=== PATIENT | female | born 1980 | race African-American/Black ===

== ENCOUNTER 2018-10-24 10:43 | Emergency (ER) | payer OTHER ==
[~2018-10-24] VITALS: Ht 149.9 cm; Wt 63.5 kg
[2018-10-24 10:57] VITALS: BP 135/88
[2018-10-24] MEDS ORDERED: KETOROLAC 60 MG/2 ML VIAL. IM ONE (11:00)
[2018-10-24] MEDS ORDERED: GABA600T7 PO (11:04)
--- NOTE | 2018-10-24 11:04 | PHYS DOC ---
Adult General Chief Complaint Chief Complaint: PAIN CONTROL HPI HPI Patient is a 38 year old female who presents with complaining of back pain and neck pain and needs pain medication. Patient states she had history of fibromyalgia and taking gabapentin and ran out of her medication for the last 1 week and was not able to see her physician on to the next 3 days. Patient complaining of increasing her chronic pain in her neck and back and asking for refill of gabapentin. Patient states she had hydrocodone at home and took some of them but ran out of hydrocodone. Review of Systems Review of Systems Constitutional: Denies fever or chills [] Eyes: Denies change in visual acuity, redness, or eye pain [] HENT: Denies nasal congestion or sore throat [] Respiratory: Denies cough or shortness of breath [] Cardiovascular: No additional information not addressed in HPI [] GI: Denies abdominal pain, nausea, vomiting, bloody stools or diarrhea [] : Denies dysuria or hematuria [] Musculoskeletal: Reports back pain Integument: Denies rash or skin lesions [] Neurologic: Denies headache, focal weakness or sensory changes [] Endocrine: Denies polyuria or polydipsia [] All other systems were reviewed and found to be within normal limits, except as documented in this note. Current Medications Current Medications Current Medications Medications (Trade) Dose Ordered Sig/Dillon Start Time Stop Time Status Last Admin Dose Admin Ketorolac Tromethamine (Toradol Im) 60 mg 1X ONCE 10/24/18 11:00 10/24/18 11:05 DC 10/24/18 11:16 60 MG Allergies Allergies Allergies Coded Allergies Type Severity Reaction Last Updated Verified No Known Drug Allergies 10/24/18 No Physical Exam Physical Exam Constitutional: Well developed, well nourished, mild distress, non-toxic appearance. [] HENT: Normocephalic, atraumatic. Eyes: PERRLA, EOMI, conjunctiva normal, no discharge. [] Neck: Normal range of motion, no tenderness, supple, no stridor. [] Cardiovascular:Heart rate regular rhythm, no murmur [] Lungs & Thorax: Bilateral breath sounds clear to auscultation [] Back: No tenderness, no CVA tenderness. [] Extremities: No tenderness, no cyanosis, no clubbing, ROM intact, no edema. [] Neurologic: Alert and oriented X 3, no focal deficits noted. [] Psychologic: Affect normal, judgement normal, mood normal. [] Current Patient Data Vital Signs Vital Signs Date Time Temp Pulse Resp B/P (MAP) Pulse Ox O2 Delivery O2 Flow Rate FiO2 10/24/18 10:57 98.7 92 16 135/88 (104) 96 Room Air 98.7 EKG EKG [] Radiology/Procedures Radiology/Procedures [] Course & Med Decision Making Course & Med Decision Making discharge: I've spoken with the patient and/or caregivers. I've explained the patient's condition, diagnosis and treatment plan based on information available to me at this time. I've answered the patient's and/or caregivers questions and addressed any concerns. The patient and/or caregivers have a good understanding the patient's diagnosis, condition and treatment plan as can be expected at this point. Vital signs have been stabilized. The patient's condition is stable for discharge from the emergency department. The patient will pursue further outpatient evaluation with her primary care provider or other designated consulting physician as outlined in the discharge instructions. Patient and/or caregivers are agreeable to this plan of care and follow-up instructions have been explained in detail. The patient and/or caregivers have received these instructions in written format and expressed understanding of these discharge instructions. The patient and her caregivers are aware that if any significant change in condition or worsening of symptoms should prompt him to immediately return to this of the closest emergency department. If an emergent department is not readily available I would encou rage him to call 911. Dragon Disclaimer Dragon Disclaimer This electronic medical record was generated, in whole or in part, using a voice recognition dictation system. Departure Departure Impression: Primary Impression: Exacerbation of chronic back pain Additional Impression: Medication refill Disposition: HOME, SELF-CARE Condition: STABLE Referrals: UNKNOWN PCP NAME (PCP) Patient Instructions: Chronic Pain Management, Fibromyalgia, Medication Refill, Emergency Department Additional Instructions: Follow-up with your primary care physician in 3-5 days Return to ER if not getting better Scripts Gabapentin (GABAPENTIN) 600 Mg Tablet 600 MG PO TID for NEUROGENIC PAIN, #21 TAB Prov: FORD MADSEN MD 10/24/18 Problem Qualifiers FORD MADSEN MD Oct 24, 2018 11:04
== END 2018-10-24 11:18 | disposition home or self-care (01) ==
LOC: ER 10:43
DX: G89.29 Other chronic pain (principal); M54.9 Dorsalgia, unspecified; Z76.0 Encounter for issue of repeat prescription; M54.2 Cervicalgia
CPT/HCPCS: 96372; 99283; J1885

== ENCOUNTER 2018-10-30 18:18 | Emergency (ER) | payer OTHER ==
[~2018-10-30] VITALS: Ht 149.9 cm; Wt 63.5 kg
[~2018-10-30 18:18] MED LIST: GABA600T7 PO
[2018-10-30 18:29] VITALS: BP 134/76
[2018-10-30] MEDS ORDERED: ORPHENADRINE CITRATE 60 MG/2 ML VIAL. IM ONE (19:15)
[2018-10-30] MEDS ORDERED: DEXAMETHASONE SOD PHOS 20 MG/5 ML VIAL. IM ONE (19:15)
[2018-10-30] MEDS ORDERED: PRED50TA PO (20:12)
--- NOTE | 2018-10-30 20:13 | PHYS DOC ---
Past Medical History Past Medical History: Fibromyalgia Past Surgical History: No Surgical History Alcohol Use: None Drug Use: Marijuana Adult General Chief Complaint Chief Complaint: MUSCLE SPASM/[facility] HPI Patient is a 38 year old female, accompanied by her family, who presents to the emergency department with complaints of spasms in her right shoulder/trapezius area since 3:00 this afternoon she also complains of bilateral low back pain that she describes as tightness. Patient reports a history of fibromyalgia, she states she takes gabapentin, Cymbalta, and Robaxin for control of her fibromyalgia. She currently rates her pain 8 out of 10 on pain scale, she denies any numbness, tingling, or weakness of her extremities. Patient denies any saddle anesthesia or loss of bowel or bladder control. She denies any alleviating factors, she states that the pain increases with movement. Patient denies any recent heavy lifting or known injury. Review of Systems Review of Systems Constitutional: Denies fever or chills [] Eyes: Denies change in visual acuity, redness, or eye pain [] HENT: Denies nasal congestion or sore throat [] Respiratory: Denies cough or shortness of breath [] Cardiovascular: No additional information not addressed in HPI [] GI: Denies abdominal pain, nausea, vomiting, or diarrhea [] : Denies dysuria, increased urine frequency, or hematuria [] Musculoskeletal: See history of present illness Integument: Denies rash or skin lesions [] Neurologic: Denies headache, focal weakness or sensory changes [] Complete systems were reviewed and found to be within normal limits, except as documented in this note. Current Medications Current Medications Current Medications Medications (Trade) Dose Ordered Sig/[facility] Start Time Stop Time Status Last Admin Dose Admin Dexamethasone Sodium Phosphate (Decadron) 10 mg 1X ONCE 10/30/18 19:15 10/30/18 19:16 DC 10/30/18 19:24 10 MG Orphenadrine Citrate (Norflex) 60 mg 1X ONCE 10/30/18 19:15 10/30/18 19:16 DC 10/30/18 19:24 60 MG Allergies Allergies Allergies Coded Allergies Type Severity Reaction Last Updated Verified No Known Drug Allergies 10/24/18 No Physical Exam Physical Exam Constitutional: Well developed, well nourished, no acute distress, non-toxic appearance. [] HENT: Normocephalic, atraumatic, bilateral external ears normal, oropharynx moist, no oral exudates, nose normal. [] Eyes: PERRLA, EOMI, conjunctiva normal, no discharge. [] Neck: Normal range of motion, no bony tenderness, supple, no stridor. [] Cardiovascular:Heart rate regular rhythm, no murmur [] Lungs & Thorax: Bilateral breath sounds clear to auscultation [] Skin: Warm, dry, no erythema, no rash. [] Back: Left trapezius tenderness to palpation, bilateral paraspinal lumbar tenderness to palpation, no bony tenderness of the cervical, thoracic, or lumbar spine Extremities: No cyanosis, no clubbing, ROM intact, no edema. [] Neurologic: Alert and oriented X 3, normal motor function, normal sensory function, no focal deficits noted. [] Psychologic: Affect normal, judgement normal, mood normal. [] Current Patient Data Vital Signs Vital Signs Date Time Temp Pulse Resp B/P (MAP) Pulse Ox O2 Delivery O2 Flow Rate FiO2 10/30/18 18:29 97.9 78 16 134/76 (95) 97 Room Air 97.9 EKG EKG [] Radiology/Procedures Radiology/Procedures [] Course & Med Decision Making Course & Med Decision Making Pertinent Labs and Imaging studies reviewed. (See chart for details) dx: Trapezius muscle spasm, bilateral paraspinal lumbar back pain Patient was given 60 mg of IM Norflex and 10 mg of IM Decadron, she reported feeling better after these medications. A prescription was written for prednisone 50 mg tablets take 1 by mouth daily starting tomorrow. For 5 days. Patient was instructed to continue taking her methocarbamol and other daily medications as prescribed. Follow up with her primary care doctor. Return to the ER if symptoms worsen. Patient verbalized an understanding of home care, medications, follow-up, and return to ED instructions and was in agreement with the plan of care. [] Dragon Disclaimer Dragon Disclaimer This electronic medical record was generated, in whole or in part, using a voice recognition dictation system. Departure Departure Impression: Primary Impression: Trapezius muscle spasm Additional Impression: Spasm of lumbar paraspinous muscle Disposition: HOME, SELF-CARE Condition: STABLE Referrals: UNKNOWN PCP NAME (PCP) Patient Instructions: Back Pain, Adult, [id number] Additional Instructions: Fill the prescription and use as directed. Take you methocarbamol as reported. Apply ice or heat to sore area as needed for comfort. Follow up with your Primary care doctor if symptoms persist, return to the ER if symptoms worsen. Scripts Prednisone (PREDNISONE) 50 Mg Tablet 1 TAB PO DAILY, #5 TAB begin taking on 10/31/18 Prov: PENNY WHITTINGTON APRN 10/30/18 Problem Qualifiers PENNY WHITTINGTON APRN Oct 30, 2018 20:13
== END 2018-10-30 20:25 | disposition home or self-care (01) ==
LOC: ER 18:18
DX: M62.830 Muscle spasm of back (principal); M62.838 Other muscle spasm
CPT/HCPCS: 96372; 99284; J1100; J2360

== ENCOUNTER 2018-11-24 02:13 | Emergency (ER) | payer OTHER ==
[~2018-11-24] VITALS: Ht 149.9 cm; Wt 63.5 kg
[~2018-11-24 02:13] MED LIST changes: +PRED50TA PO
[2018-11-24 02:15] VITALS: BP 186/85
[2018-11-24 02:59] LABS: BILIRUBIN,URINE SMALL (NEG); CLARITY,URINE CLOUDY; COLOR,URINE AMBER; NITRITE,URINE NEGATIVE (NEG); PH,URINE 5.5; PROTEIN,URINE 100 mg/dL (NEG-TRACE); UROBILINOGEN,URINE 0.2 mg/dL (0.2 mg/dL)
[2018-11-24] MEDS ORDERED: KETOROLAC 30 MG/ML VIAL. IM ONE (03:00)
[2018-11-24] MEDS ORDERED: ONDANSETRON ODT 4 MG TAB.RAPDIS. PO ONE (03:00)
[2018-11-24 03:04] LABS: BACTERIA,URINE MANY /HPF (0-FEW); SQUAMOUS EPITHELIAL CELL,UR MANY /LPF; WBC,URINE 20-40 /HPF (0-4)
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
[2018-11-24] MEDS ORDERED: ORPH100T PO (03:38)
[2018-11-24] MEDS ORDERED: ONDA4TAB12 PO (03:38)
[2018-11-24] MEDS ORDERED: NAPR-695 PO (03:38)
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
== END 2018-11-24 06:10 | disposition home or self-care (01) ==
LOC: EEVIPCON 02:13 → ER 02:13
DX: S16.1XXA Strain of muscle, fascia and tendon at neck level, initial encounter (principal); S00.03XA Contusion of scalp, initial encounter; S40.022A Contusion of left upper arm, initial encounter; R11.0 Nausea; R42 Dizziness and giddiness; F17.210 Nicotine dependence, cigarettes, uncomplicated; Y08.89XA Assault by other specified means, initial encounter; Y93.89 Activity, other specified; Y92.89 Other specified places as the place of occurrence of the external cause; Y99.8 Other external cause status
CPT/HCPCS: 70450; 72125; 81001; 81025; 87086; 96372; 99285; J1885; Q0162

== ENCOUNTER 2019-09-23 02:26 | Emergency (ER) | payer OTHER ==
[~2019-09-23] VITALS: Ht 149.9 cm; Wt 75.0 kg
[~2019-09-23 02:26] MED LIST changes: +NAPR-695 PO; +ONDA4TAB12 PO; +ORPH100T PO
[2019-09-23 03:25] LABS: BILIRUBIN,URINE NEGATIVE (NEG); CLARITY,URINE CLEAR; COLOR,URINE YELLOW; NITRITE,URINE NEGATIVE (NEG); PROTEIN,URINE NEGATIVE (NEG-TRACE)
[2019-09-23 03:25] LABS: BASO # 0.1 x10^3/uL (0.0-0.2); BASO % 1 % (0-3); EOS # 0.2 x10^3/uL (0.0-0.7); EOS % 1 % (0-3); HEMATOCRIT 41.8 % (36.0-47.0); HEMOGLOBIN 14.4 g/dL (12.0-15.5); LYMPH # 2.5 x10^3/uL (1.0-4.8); LYMPH % 18 % (24-48); MEAN CORPUSCULAR HEMOGLOBIN 33 pg (25-35); MEAN CORPUSCULAR HGB CONC 34 g/dL (31-37); MEAN CORPUSCULAR VOLUME 94 fL (79-100); MONO # 0.4 x10^3/uL (0.0-1.1); MONO % 3 % (0-9); NEUT # 10.2 x10^3/uL (1.8-7.7); NEUT % 77 % (31-73); PLATELET COUNT 257 x10^3/uL (140-400); RED BLOOD COUNT 4.43 x10^6/uL (3.50-5.40); RED CELL DISTRIBUTION WIDTH 13.2 % (11.5-14.5); WHITE BLOOD COUNT 13.3 x10^3/uL (4.0-11.0)
[2019-09-23 03:32] LABS: CALCIUM 8.9 mg/dL (8.5-10.1); CREATININE 0.8 mg/dL (0.6-1.0); GFR 80.3; POTASSIUM 4.1 mmol/L (3.5-5.1)
[2019-09-23 03:33] LABS: PREG TEST PT QUAL NEGATIVE (NEG)
[2019-09-23] MEDS: DICYCLOMINE 20 MG/2 ML VIAL. IM ONE (03:35)
[2019-09-23] MEDS: IV NORMAL SALINE 1000ML BAG 1,000 ML IV SCH (03:35)
[2019-09-23] MEDS: ONDANSETRON PF 4 MG/2 ML VIAL. IVP ONE (03:35)
[2019-09-23 03:37] LABS: ALBUMIN/GLOBULIN RATIO 1.1 (1.0-1.7); TOTAL BILIRUBIN 0.2 mg/dL (0.2-1.0); TOTAL PROTEIN 7.7 g/dL (6.4-8.2)
--- NOTE | 2019-09-23 03:37 | PHYS DOC ---
Past Medical History Past Medical History: Fibromyalgia, Hypertension Past Surgical History: No Surgical History Smoking Status: Current Every Day Smoker Alcohol Use: None Drug Use: Marijuana General Adult EDM: Chief Complaint: ABDOMINAL PAIN HPI: HPI: Patient is a 39 year old female who presents with 3 to 4-hour history of left- sided abdominal pain that is 8 out of 10 in intensity nonradiating described as burning and sharp in the left side of the abdomen. Patient has nausea and constipation. No fevers, chills, diarrhea. Patient also has had some dysuria. Review of Systems: Review of Systems: Constitutional: Denies fever or chills. [] Eyes: Denies change in visual acuity. [] HENT: Denies nasal congestion or sore throat. [] Respiratory: Denies cough or shortness of breath. [] Cardiovascular: Denies chest pain or edema. [] GI: Complains of abdominal pain and nausea but no diarrhea also complains of constipation : Complains of dysuria Musculoskeletal: Denies back pain or joint pain. [] Integument: Denies rash. [] Neurologic: Denies headache, focal weakness or sensory changes. [] Endocrine: Denies polyuria or polydipsia. [] Lymphatic: Denies swollen glands. [] Psychiatric: Denies depression or anxiety. [] Heart Score: Risk Factors: Risk Factors: DM, Current or recent (<one month) smoker, HTN, HLP, family history of CAD, obesity. Risk Scores: Score 0 - 3: 2.5% MACE over next 6 weeks - Discharge Home Score 4 - 6: 20.3% MACE over next 6 weeks - Admit for Clinical Observation Score 7 - 10: 72.7% MACE over next 6 weeks - Early Invasive Strategies Current Medications: Current Medications Medications (Trade) Dose Ordered Sig/Dillon Start Time Stop Time Status Last Admin Dose Admin Dicyclomine HCl (Bentyl) 20 mg 1X ONCE 09/23/19 03:30 09/23/19 03:31 DC Ondansetron HCl (Zofran) 4 mg 1X ONCE 09/23/19 03:30 09/23/19 03:31 DC Sodium Chloride 1,000 ml @ 1,000 mls/hr Q1H 09/23/19 03:30 09/23/19 04:29 Allergies: Allergies: Allergies Coded Allergies Type Severity Reaction Last Updated Verified No Known Drug Allergies 10/24/18 No Physical Exam: PE: Constitutional: Well developed, well nourished, no acute distress, non-toxic appearance. [] HENT: Normocephalic, atraumatic, bilateral external ears normal, oropharynx moist, no oral exudates, nose normal. [] Eyes: PERRLA, EOMI, conjunctiva normal, no discharge. [] Neck: Normal range of motion, no tenderness, supple, no stridor. [] Cardiovascular:Heart rate regular rhythm, peripheral pulses intact cap refill brisk Lungs & Thorax: Bilateral breath sounds clear, no respiratory distress Abdomen: , soft, tender to palpate a left-sided abdomen without guarding or rebound no masses, no pulsatile masses. [] Skin: Warm, dry, no erythema, no rash. [] Back: No tenderness, no CVA tenderness. [] Extremities: No tenderness, no cyanosis, no clubbing, ROM intact, no edema. [] Neurologic: Alert and oriented X 3, normal motor function, normal sensory function, no focal deficits noted. [] Psychologic: Affect normal, judgement normal, mood normal. [] Current Patient Data: Labs: Laboratory Tests Test 09/23/19 02:30 09/23/19 02:36 09/23/19 03:13 Urine Collection Type Unknown Urine Color Yellow Urine Clarity Clear Urine pH 7.0 Urine Specific [place] 1.010 Urine Protein Negative mg/dL Urine Glucose (UA) Negative mg/dL Urine Ketones (Stick) Negative mg/dL Urine Blood Small Urine Nitrite Negative Urine Bilirubin Negative Urine Urobilinogen Dipstick 1.0 mg/dL Urine Leukocyte Esterase Negative Urine RBC Occ /HPF Urine WBC Occ /HPF Urine Squamous Epithelial Cells Mod /LPF Urine Bacteria Few /HPF Bedside Urine HCG, Qualitative Hcg negative White Blood Count 13.3 x10^3/uL Red Blood Count 4.43 x10^6/uL Hemoglobin 14.4 g/dL Hematocrit 41.8 % Mean Corpuscular Volume 94 fL Mean Corpuscular Hemoglobin 33 pg Mean Corpuscular Hemoglobin Concent 34 g/dL Red Cell Distribution Width 13.2 % Platelet Count 257 x10^3/uL Neutrophils (%) (Auto) 77 % Lymphocytes (%) (Auto) 18 % Monocytes (%) (Auto) 3 % Eosinophils (%) (Auto) 1 % Basophils (%) (Auto) 1 % Neutrophils # (Auto) 10.2 x10^3/uL Lymphocytes # (Auto) 2.5 x10^3/uL Monocytes # (Auto) 0.4 x10^3/uL Eosinophils # (Auto) 0.2 x10^3/uL Basophils # (Auto) 0.1 x10^3/uL Sodium Level 138 mmol/L Potassium Level 4.1 mmol/L Chloride Level 102 mmol/L Carbon Dioxide Level 29 mmol/L Anion Gap 7 Blood Urea Nitrogen 7 mg/dL Creatinine 0.8 mg/dL Estimated GFR (Cockcroft-Gault) 80.3 BUN/Creatinine Ratio 9 Glucose Level 107 mg/dL Calcium Level 8.9 mg/dL Total Bilirubin 0.2 mg/dL Aspartate Amino Transf (AST/SGOT) 17 U/L Alanine Aminotransferase (ALT/SGPT) 22 U/L Alkaline Phosphatase 66 U/L Total Protein 7.7 g/dL Albumin 4.0 g/dL Albumin/Globulin Ratio 1.1 Lipase 97 U/L Serum Test, Qualitative Negative Current Medications Medications (Trade) Dose Ordered Sig/Dillon Route PRN Reason Start Time Stop Time Status Last Admin Dose Admin Sodium Chloride 1,000 ml @ 1,000 mls/hr Q1H IV 09/23/19 03:30 09/23/19 04:29 DC 09/23/19 03:35 Ondansetron HCl (Zofran) 4 mg 1X ONCE IVP 09/23/19 03:30 09/23/19 03:31 DC 09/23/19 03:35 Dicyclomine HCl (Bentyl) 20 mg 1X ONCE IM 09/23/19 03:30 09/23/19 03:31 DC 09/23/19 03:35 Iohexol (Omnipaque 300 Mg/ml) 75 ml 1X ONCE IV 09/23/19 04:00 09/23/19 04:01 DC 09/23/19 03:47 Info (CONTRAST GIVEN -- Rx MONITORING) 1 each PRN DAILY PRN MC SEE COMMENTS 09/23/19 03:45 09/25/19 03:44 Morphine Sulfate (Morphine Sulfate) 4 mg 1X ONCE IV 09/23/19 05:00 09/23/19 05:01 Laboratory Tests Test 09/23/19 02:36 09/23/19 03:13 POC Urine HCG, Qualitative Hcg negative (Negative) White Blood Count 13.3 x10^3/uL (4.0-11.0) H Red Blood Count 4.43 x10^6/uL (3.50-5.40) Hemoglobin 14.4 g/dL (12.0-15.5) Hematocrit 41.8 % (36.0-47.0) Mean Corpuscular Volume 94 fL (79-100) Mean Corpuscular Hemoglobin 33 pg (25-35) Mean Corpuscular Hemoglobin Concent 34 g/dL (31-37) Red Cell Distribution Width 13.2 % (11.5-14.5) Platelet Count 257 x10^3/uL (140-400) Neutrophils (%) (Auto) 77 % (31-73) H Lymphocytes (%) (Auto) 18 % (24-48) L Monocytes (%) (Auto) 3 % (0-9) Eosinophils (%) (Auto) 1 % (0-3) Basophils (%) (Auto) 1 % (0-3) Neutrophils # (Auto) 10.2 x10^3/uL (1.8-7.7) H Lymphocytes # (Auto) 2.5 x10^3/uL (1.0-4.8) Monocytes # (Auto) 0.4 x10^3/uL (0.0-1.1) Eosinophils # (Auto) 0.2 x10^3/uL (0.0-0.7) Basophils # (Auto) 0.1 x10^3/uL (0.0-0.2) Sodium Level 138 mmol/L (136-145) Potassium Level 4.1 mmol/L (3.5-5.1) Chloride Level 102 mmol/L (98-107) Carbon Dioxide Level 29 mmol/L (21-32) Anion Gap 7 (6-14) Blood Urea Nitrogen 7 mg/dL (7-20) Creatinine 0.8 mg/dL (0.6-1.0) Estimated GFR (Cockcroft-Gault) 80.3 BUN/Creatinine Ratio 9 (6-20) Glucose Level 107 mg/dL (70-99) H Calcium Level 8.9 mg/dL (8.5-10.1) Total Bilirubin Pending Aspartate Amino Transferase (AST) Pending Alanine Aminotransferase (ALT) Pending Alkaline Phosphatase Pending Total Protein Pending Albumin Pending Albumin/Globulin Ratio Pending Lipase Pending Serum Test, Qualitative Negative (NEG) Laboratory Tests 09/23/19 03:13 Laboratory Tests 09/23/19 03:13 Vital Signs: Vital Signs Date Time Temp Pulse Resp B/P (MAP) Pulse Ox O2 Delivery O2 Flow Rate FiO2 09/23/19 03:00 97.8 76 18 170/108 (128) 100 Room Air 97.8 EKG: EKG: [] Radiology/Procedures: Radiology/Procedures: [][facility] [address] [place] [address] IMAGING REPORT Signed PATIENT: JHOAN BOYKIN ACCOUNT: [id number] : 1980 LOCATION: ER AGE: 39 SEX: F EXAM STATUS: REG ER ORD. PHYSICIAN: ZHENG MAYO MD REASON: L ABD PAIN PROCEDURE: CT ABD PELV W/ IV CONTRST ONLY INDICATION: Reason: L ABD PAIN / Spl. Instructions: / History: COMPARISON: May 16, 2018 TECHNIQUE: Axial CT images obtained through the abdomen and pelvis with contrast. One or more of the following individualized dose reduction techniques were utilized for this examination: 1. Automated exposure control; 2. Adjustment of the mA and/or kV according to patient size; 3. Use of iterative reconstruction technique. FINDINGS: There is some mild dependent atelectasis. Abdominal aorta is not aneurysmal. Small fat-containing umbilical hernia. No intrahepatic bile duct dilation. Gallbladder somewhat distended at time of exam. No peripancreatic fluid collection. Spleen unremarkable. Low-density lesion left kidney measuring 11 mm. Urinary bladder is partially distended. Enlargement of the left adnexa. Distention of the right extrarenal pelvis. Suspected dominant follicle or small cyst right ovary measuring up to 2 cm. No periappendiceal inflammatory changes. No dilated loops of bowel to suggest obstruction. Degenerative changes of the spine with mild scoliotic curvature. IMPRESSION: * Enlargement of the left adnexa which could be secondary to a left ovarian mass. Ultrasound could be helpful to further assess. There is also suspected cyst or dominant follicle right ovary. * No evidence of bowel obstruction or appendicitis. * Low-density lesion of the left kidney which is not well characterized on this exam but most commonly secondary to cyst in a patient of this age. If confirmation is desired ultrasound could further assess to ensure that there is no complex component. Electronically signed by: Reyna Hill MD (09/23/2019 4:11 AM) [id number] DICTATED and SIGNED BY: REYNA HILL MD DATE: 09/23/19 0411 Course & Med Decision Making: Course & Med Decision Making Pertinent Labs and Imaging studies reviewed. (See chart for details) [] On reassessment the patient's pain is improved but still [address] shows a left adnexal mass. Ultrasound has been ordered. 5:26 reassessment patient sleeping did not receive morphine as she was sleeping. 5:40 AM reassessment patient receiving sonogram Care will be signed over to Dr. Child with ultrasound and disposition pending Garrick Disclaimer: Garrick Disclaimer: This electronic medical record was generated, in whole or in part, using a voice recognition dictation system. Departure Departure Impression: Primary Impression: Left sided abdominal pain Condition: IMPROVED Referrals: UNKNOWN PCP NAME (PCP) Justicifation of Admission Dx: Justifications for Admission: Justification of Admission Dx: N/A ZHENG MAYO MD Sep 23, 2019 03:37
[2019-09-23 03:39] LABS: BACTERIA,URINE FEW /HPF (0-FEW); RBC,URINE OCC /HPF (0-2); SQUAMOUS EPITHELIAL CELL,UR MOD /LPF; WBC,URINE OCC /HPF (0-4)
[2019-09-23] MEDS ORDERED: CONTRAST GIVEN. MC PRN (03:45)
[2019-09-23] MEDS: IOHEXOL 300 MG/ML 100ML VIAL. IV ONE (03:47)
--- NOTE | 2019-09-23 04:13 | RAD ---
INDICATION: Reason: L ABD PAIN / Spl. Instructions: / History: COMPARISON: May 16, 2018 TECHNIQUE: Axial CT images obtained through the abdomen and pelvis with contrast. One or more of the following individualized dose reduction techniques were utilized for this examination: 1. Automated exposure control; 2. Adjustment of the mA and/or kV according to patient size; 3. Use of iterative reconstruction technique. FINDINGS: There is some mild dependent atelectasis. Abdominal aorta is not aneurysmal. Small fat-containing umbilical hernia. No intrahepatic bile duct dilation. Gallbladder somewhat distended at time of exam. No peripancreatic fluid collection. Spleen unremarkable. Low-density lesion left kidney measuring 11 mm. Urinary bladder is partially distended. Enlargement of the left adnexa. Distention of the right extrarenal pelvis. Suspected dominant follicle or small cyst right ovary measuring up to 2 cm. No periappendiceal inflammatory changes. No dilated loops of bowel to suggest obstruction. Degenerative changes of the spine with mild scoliotic curvature. IMPRESSION: * Enlargement of the left adnexa which could be secondary to a left ovarian mass. Ultrasound could be helpful to further assess. There is also suspected cyst or dominant follicle right ovary. * No evidence of bowel obstruction or appendicitis. * Low-density lesion of the left kidney which is not well characterized on this exam but most commonly secondary to cyst in a patient of this age. If confirmation is desired ultrasound could further assess to ensure that there is no complex component. Electronically signed by: Ricardo Morse MD (09/23/2019 4:11 AM) [id number]
[2019-09-23] MEDS ORDERED: MORPHINE SULFATE 4 MG/ML VIAL. IV ONE (05:00)
[2019-09-23 05:35] VITALS: BP 150/89
--- NOTE | 2019-09-23 06:27 | RAD ---
INDICATION: Reason: l adenexal mass / Spl. Instructions: / History: COMPARISON: CT from earlier same day as well as April 2018 TECHNIQUE: Grayscale and color ultrasound images uterus and adnexa. Transabdominal and transvaginal images obtained. Transvaginal images were needed to better visualize structures that were limited on transabdominal imaging. FINDINGS: Uterus: 91 x 45 x 36 mm. Endometrial Stripe: 5 mm. Right Ovary: 49 x 23 x 20 mm. Left Ovary: 52 x 45 x 45 mm. Vascular flow identified to bilateral ovaries. Cystic changes at the lower uterine segment which could be from nabothian cyst formation. There is some heterogeneity within the uterus. Simple appearing cyst of the right ovary measuring 29 x 18 mm. Masslike structure in the left adnexa measuring 53 x 46 mm. IMPRESSION: * Simple cyst within the right ovary. * Within the left adnexa there is a complex masslike structure identified which does not appear cystic in nature. Both benign and malignant neoplasms of the adnexa can have this appearance and this is a change from the patient's prior CT from April 2018. Further workup option includes either obtaining a short interval follow-up CT or ultrasound to ensure that this regresses in size or a nonemergent pelvic MRI with and without contrast to further assess the internal architecture. Electronically signed by: Ricardo Morse MD (09/23/2019 6:23 AM) [id number]
[2019-09-23] MEDS ORDERED: IBUP-1007 PO (06:44)
--- NOTE | 2019-09-23 06:45 | PHYS DOC ---
Past Medical History Past Medical History: Fibromyalgia, Hypertension Past Surgical History: No Surgical History Smoking Status: Current Every Day Smoker Alcohol Use: None Drug Use: Marijuana General Adult EDM: Chief Complaint: ABDOMINAL PAIN HPI: HPI: See previous provider's note for details. Review of Systems: Review of Systems: Constitutional: Denies fever or chills. [] Eyes: Denies change in visual acuity. [] HENT: Denies nasal congestion or sore throat. [] Respiratory: Denies cough or shortness of breath. [] Cardiovascular: Denies chest pain or edema. [] GI: Positive for abdominal pain : Denies dysuria. [] Musculoskeletal: Denies back pain or joint pain. [] Integument: Denies rash. [] Neurologic: Denies headache, focal weakness or sensory changes. [] Endocrine: Denies polyuria or polydipsia. [] Lymphatic: Denies swollen glands. [] Psychiatric: Denies depression or anxiety. [] Heart Score: Risk Factors: Risk Factors: DM, Current or recent (<one month) smoker, HTN, HLP, family history of CAD, obesity. Risk Scores: Score 0 - 3: 2.5% MACE over next 6 weeks - Discharge Home Score 4 - 6: 20.3% MACE over next 6 weeks - Admit for Clinical Observation Score 7 - 10: 72.7% MACE over next 6 weeks - Early Invasive Strategies Current Medications: Current Medications Medications (Trade) Dose Ordered Sig/Dillon Start Time Stop Time Status Last Admin Dose Admin Dicyclomine HCl (Bentyl) 20 mg 1X ONCE 09/23/19 03:30 09/23/19 03:31 DC 09/23/19 03:35 20 MG Info (CONTRAST GIVEN -- Rx MONITORING) 1 each PRN DAILY PRN 09/23/19 03:45 09/25/19 03:44 Iohexol (Omnipaque 300 Mg/ml) 75 ml 1X ONCE 09/23/19 04:00 09/23/19 04:01 DC 09/23/19 03:47 75 ML Morphine Sulfate (Morphine Sulfate) 4 mg 1X ONCE 09/23/19 05:00 09/23/19 05:01 DC Ondansetron HCl (Zofran) 4 mg 1X ONCE 09/23/19 03:30 09/23/19 03:31 DC 09/23/19 03:35 4 MG Sodium Chloride 1,000 ml @ 1,000 mls/hr Q1H 09/23/19 03:30 09/23/19 04:29 DC 09/23/19 03:35 1,000 MLS/HR Allergies: Allergies: Allergies Coded Allergies Type Severity Reaction Last Updated Verified No Known Drug Allergies 10/24/18 No Physical Exam: PE: Constitutional: Well developed, well nourished, no acute distress, non-toxic appearance. [] HENT: Normocephalic, atraumatic, bilateral external ears normal, oropharynx moist, no oral exudates, nose normal. [] Eyes: PERRLA, EOMI, conjunctiva normal, no discharge. [] Neck: Normal range of motion, no tenderness, supple, no stridor. [] Cardiovascular:Heart rate regular rhythm, no murmur [] Lungs & Thorax: Bilateral breath sounds clear to auscultation [] Abdomen: Minimal tenderness to palpation in the left lower quadrant. No guarding Skin: Warm, dry, no erythema, no rash. [] Back: No tenderness, no CVA tenderness. [] Extremities: No tenderness, no cyanosis, no clubbing, ROM intact, no edema. [] Neurologic: Alert and oriented X 3, normal motor function, normal sensory function, no focal deficits noted. [] Psychologic: Affect normal, judgement normal, mood normal. [] Current Patient Data: Labs: Laboratory Tests Test 09/23/19 02:30 09/23/19 02:36 09/23/19 03:13 Urine Collection Type Unknown Urine Color Yellow Urine Clarity Clear Urine pH 7.0 (<5.0-8.0) Urine Specific [place] 1.010 (1.000-1.030) Urine Protein Negative mg/dL (NEG-TRACE) Urine Glucose (UA) Negative mg/dL (NEG) Urine Ketones (Stick) Negative mg/dL (NEG) Urine Blood Small (NEG) Urine Nitrite Negative (NEG) Urine Bilirubin Negative (NEG) Urine Urobilinogen Dipstick 1.0 mg/dL (0.2 mg/dL) Urine Leukocyte Esterase Negative (NEG) Urine RBC Occ /HPF (0-2) Urine WBC Occ /HPF (0-4) Urine Squamous Epithelial Cells Mod /LPF Urine Bacteria Few /HPF (0-FEW) POC Urine HCG, Qualitative Hcg negative (Negative) White Blood Count 13.3 x10^3/uL (4.0-11.0) H Red Blood Count 4.43 x10^6/uL (3.50-5.40) Hemoglobin 14.4 g/dL (12.0-15.5) Hematocrit 41.8 % (36.0-47.0) Mean Corpuscular Volume 94 fL (79-100) Mean Corpuscular Hemoglobin 33 pg (25-35) Mean Corpuscular Hemoglobin Concent 34 g/dL (31-37) Red Cell Distribution Width 13.2 % (11.5-14.5) Platelet Count 257 x10^3/uL (140-400) Neutrophils (%) (Auto) 77 % (31-73) H Lymphocytes (%) (Auto) 18 % (24-48) L Monocytes (%) (Auto) 3 % (0-9) Eosinophils (%) (Auto) 1 % (0-3) Basophils (%) (Auto) 1 % (0-3) Neutrophils # (Auto) 10.2 x10^3/uL (1.8-7.7) H Lymphocytes # (Auto) 2.5 x10^3/uL (1.0-4.8) Monocytes # (Auto) 0.4 x10^3/uL (0.0-1.1) Eosinophils # (Auto) 0.2 x10^3/uL (0.0-0.7) Basophils # (Auto) 0.1 x10^3/uL (0.0-0.2) Sodium Level 138 mmol/L (136-145) Potassium Level 4.1 mmol/L (3.5-5.1) Chloride Level 102 mmol/L (98-107) Carbon Dioxide Level 29 mmol/L (21-32) Anion Gap 7 (6-14) Blood Urea Nitrogen 7 mg/dL (7-20) Creatinine 0.8 mg/dL (0.6-1.0) Estimated GFR (Cockcroft-Gault) 80.3 BUN/Creatinine Ratio 9 (6-20) Glucose Level 107 mg/dL (70-99) H Calcium Level 8.9 mg/dL (8.5-10.1) Total Bilirubin 0.2 mg/dL (0.2-1.0) Aspartate Amino Transferase (AST) 17 U/L (15-37) Alanine Aminotransferase (ALT) 22 U/L (14-59) Alkaline Phosphatase 66 U/L (46-116) Total Protein 7.7 g/dL (6.4-8.2) Albumin 4.0 g/dL (3.4-5.0) Albumin/Globulin Ratio 1.1 (1.0-1.7) Lipase 97 U/L (73-393) Serum Test, Qualitative Negative (NEG) Laboratory Tests 09/23/19 03:13 Laboratory Tests 09/23/19 03:13 Vital Signs: Vital Signs Date Time Temp Pulse Resp B/P (MAP) Pulse Ox O2 Delivery O2 Flow Rate FiO2 09/23/19 05:35 85 20 150/89 (109 99 Room Air 09/23/19 03:00 97.8 97.8 EKG: EKG: [] Radiology/Procedures: Radiology/Procedures: [][facility] [address] [place], [place] [id number] IMAGING REPORT Signed PATIENT: JHOAN BOYKIN ACCOUNT: [id number] : 1980 LOCATION: ER AGE: 39 SEX: F EXAM STATUS: REG ER ORD. PHYSICIAN: ZHENG MAYO MD REASON: l adenexal mass PROCEDURE: PELVIS COMPLETE INDICATION: Reason: l adenexal mass / Spl. Instructions: / History: COMPARISON: CT from earlier same day as well as April 2018 TECHNIQUE: Grayscale and color ultrasound images uterus and adnexa. Transabdominal and transvaginal images obtained. Transvaginal images were needed to better visualize structures that were limited on transabdominal imaging. FINDINGS: Uterus: 91 x 45 x 36 mm. Endometrial Stripe: 5 mm. Right Ovary: 49 x 23 x 20 mm. Left Ovary: 52 x 45 x 45 mm. Vascular flow identified to bilateral ovaries. Cystic changes at the lower uterine segment which could be from nabothian cyst formation. There is some heterogeneity within the uterus. Simple appearing cyst of the right ovary measuring 29 x 18 mm. Masslike structure in the left adnexa measuring 53 x 46 mm. IMPRESSION: * Simple cyst within the right ovary. * Within the left adnexa there is a complex masslike structure identified which does not appear cystic in nature. Both benign and malignant neoplasms of the adnexa can have this appearance and this is a change from the patient's prior CT from April 2018. Further workup option includes either obtaining a short interval follow-up CT or ultrasound to ensure that this regresses in size or a nonemergent pelvic MRI with and without contrast to further assess the internal architecture. Electronically signed by: Reyna Hill MD (09/23/2019 6:23 AM) [id number] DICTATED and SIGNED BY: REYNA HILL MD DATE: 09/23/19622 Course & Med Decision Making: Course & Med Decision Making Pertinent Labs and Imaging studies reviewed. (See chart for details) Patient is a 39-year-old female who presents with chief complaint of sudden onset left lower quadrant abdominal discomfort yesterday afternoon. On CAT scan imaging left ovarian mass identified. Follow-up pelvic ultrasound reveals a 52 x 45 x 45 mm masslike structure near the left ovary. Does not appear cystic in nature. Concerning for benign versus malignant neoplasm per radiology report. Vascular flow intact to the ovaries bilaterally. I did discuss the imaging findings with TRANSFER AGENT Dr. Goldman. He did recommend outpatient follow-up for further investigation. On my repeat examination her abdomen is benign. She has tolerated p.o. Vital signs been stable. She was updated on plan of care and is agreeable to outpatient work-up. Stable for discharge home. Dragon Disclaimer: Dragandrei Disclaimer: This electronic medical record was generated, in whole or in part, using a voice recognition dictation system. Departure Departure Impression: Primary Impression: Ovarian mass, left Additional Impression: Left sided abdominal pain Disposition: 01 HOME, SELF-CARE Condition: IMPROVED Referrals: UNKNOWN PCP NAME (PCP) GILLES GOLDMAN MD Patient Instructions: Ovarian Cancer Additional Instructions: Please call TRANSFER AGENT to schedule appointment in the next 2 to 3 days. Scripts Ibuprofen (IBUPROFEN) 600 Mg Tablet 600 MG PO PRN Q6HRS PRN for PAIN, #20 TAB take with food or milk Prov: SUNNY FORREST DO 09/23/19 Justicifation of Admission Dx: Justifications for Admission: Justification of Admission Dx: N/A SUNNY FORREST DO Sep 23, 2019 06:45
== END 2019-09-23 06:56 | disposition home or self-care (01) ==
LOC: ER 02:26
DX: R10.32 Left lower quadrant pain (principal); R11.0 Nausea; R30.0 Dysuria; I10 Essential (primary) hypertension; M79.7 Fibromyalgia; F17.200 Nicotine dependence, unspecified, uncomplicated; F12.90 Cannabis use, unspecified, uncomplicated
CPT/HCPCS: 36415; 74177; 76856; 80053; 81001; 81025; 83690; 84703; 85025; 96361; 96372; 96374; 99285; J0500; J2405; J7030; Q9967